=== PATIENT | male | born 1995 | race Caucasian/White ===

== ENCOUNTER 2021-11-10 12:38 | Emergency (ER) | payer OTHER ==
[~2021-11-10] VITALS: Ht 188 cm; Wt 89.9 kg
[2021-11-10] MEDS ORDERED: KETOROLAC 60MG 2ML VIAL IM ONE (15:30)
[2021-11-10] MEDS ORDERED: LIDOCAINE 5% (LIDODERM) PATCH TD ONE (15:30)
[2021-11-10 16:11] VITALS: BP 145/73
[2021-11-10] MEDS ORDERED: **NOTE PATIENT COMMENT** MISC XX SCH (21:00)
[2021-11-11] MEDS ORDERED: LIDO5DIS41 TOP (09:53)
[2021-11-11] MEDS ORDERED: METH-1165 PO (09:53)
[2021-11-11] MEDS ORDERED: NAPR-837 PO (09:53)
== END 2021-11-10 16:57 | disposition home or self-care (01) ==
LOC: M ED 12:38
DX: R19.7 Diarrhea, unspecified (principal)
CPT/HCPCS: 96372; 99283; J1885